=== PATIENT | female | born 1985 | race Two or more races ===

== ENCOUNTER 2024-05-04 18:14 | Emergency (ER) | payer OTHER, MEDICAID ==
[~2024-05-04] VITALS: Ht 165.1 cm; Wt 95.0 kg
[2024-05-04] MEDS ORDERED: MORPHINE SULFATE INJ 2 MG/ml SYRG IM ONE (19:30)
[2024-05-04] MEDS ORDERED: IBUP-1456 PO (19:31)
--- NOTE | 2024-05-04 19:31 | ED.PDOC ---
Musculoskeletal HPI Comments 39 year old female presents to ER for pain management of post operative pain to right knee. Patient states that she was discharged at noon today from [facility] after having a right knee replacement and presents to ER today for pain management of post operative pain to right knee. She reports she did take oxycodone as prescribed by her orthopedic surgeon without relief. She reports 10/10 pain to right knee without radiation and is requesting pain medication for her right knee post operative pain in ER today. States she is following up with her orthopedic surgeon in one week. Denies fever, body aches, chills, shortness of breath, chest pain, calf pain or any further symptoms/complaints Chief Complaint: Lower Extremity Time Seen by MD: 18:27 Primary Care Provider: UNKNOWN Reviewed Notes: Nurses Notes, Medications, Allergies Home Meds Active Scripts Ibuprofen (Ibuprofen) 800 Mg Tab, 1 TAB PO TID PRN, #30 TAB 0 Refills Prov:FAITH ROUSSEAU 05/04/24 Information Source: Patient Mode of Arrival: Ambulatory Past Medical History PAST MEDICAL HISTORY: Denies Surgical History (Other): Right knee replacement Family History Family History: Unknown Social History Smoker: Non-Smoker Alcohol: Denies ETOH Use Drugs: Denies Drug Use Lives In: Home Constitutional: denies: chills, diaphoresis, fatigue, fever, malaise, sweats, weakness, others EENTM: denies: blurred vision, double vision, ear bleeding, ear discharge, ear drainage, ear pain, ear ringing, eye pain, eye redness, hearing loss, mouth pain, mouth swelling, nasal discharge, nose bleeding, nose congestion, nose pain, photophobia, tearing, throat pain, throat swelling, voice changes, others Respiratory: denies: cough, hemoptysis, orthopnea, SOB at rest, shortness of breath, SOB with excertion, stridor, wheezing, others Cardiovascular: denies: chest pain, dizzy spells, diaphoresis, Dyspnea on exertion, edema, irregular heart beat, left arm pain, lightheadedness, palpitations, PND, syncope, others Gastrointestinal: denies: abdomen distended, abdominal pain, blood streaked bowels, constipated, diarrhea, dysphagia, difficulty swallowing, hematemesis, melena, nausea, poor appetite, poor fluid intake, rectal bleeding, rectal pain, vomiting, others Genitourinary: denies: abnormal vagina bleeding, burning, dyspareunia, dysuria, flank pain, frequency, hematuria, incontinence, pain, , vagina discharge, urgency, others Neurological: denies: dizziness, fainting, headache, left sided numbness, left sided weakness, numbness, paresthesia, pre-existing deficit, right sided numbness, right sided weakness, seizure, speech problems, tingling, tremors, weakness, others Musculoskeletal: reports: others (As stated in HPI) Integumetry: denies: bruises, change in color, change in hair/nails, dryness, laceration, lesions, lumps, rash, wounds, others Allergic/Immunocompromised: denies: Difficulty Healing, Frequent Infections, Hives, Itching, others Hematologic/Lymphatic: denies: anemia, blood clots, easy bleeding, easy bruising, swollen glands, others Endocrine: denies: excessive hunger, excessive sweating, excessive thirst, excessive urination, flushing, intolerance to cold, intolerance to heat, unexplained weight gain, unexplained weight loss, others Psychiatric: denies: anxiety, bipolar disorder, depression, hopeless, panic disorder, schizophrenia, sleepless, suicidal, others Physical Exam General Appearance: No Apparent Distress, Obese HEENT: PERRL/EOMI Neck: Full Range of Motion, Non-Tender, Normal Respiratory: Chest Non-Tender, Lungs Clear, No Accessory Muscle Use, No Respiratory Distress, Normal Breath Sounds Cardiovascular: No Murmur, No Gallop, Regular Rate/Rhythm Breast Exam: Deferred Gastrointestinal: NOT DONE Genitalia: Deferred Pelvic: Deferred Rectal: Deferred Extremities: No calf tenderness, Normal capillary refill, Normal range of motion Musculoskeletal : Extremity Location: Knee (Postoperative bandage noted to right knee. No erythema/bleeding/drainage appreciated. Pulses intact. Gait slowed with use of asstistance) Neurologic: Alert, No Motor Deficits, Normal Affect, Normal Mood, No Sensory Deficits Cerebellar Function: Normal Reflexes: Normal Skin: Dry, Normal Color, Warm Peripheral Pulses: 2+ femoral (R), 2+ femoral (L), 2+ dorsalis pedis (R), 2+ dorsalis pedis (L), 2+ Radial (R), 2+ Radial (L), 2+ Brachial (R), 2+ Brachial (L) Lymphatic: No Adenopathy Was a procedure done? Was a procedure done?: No Sedation Sedation?: No Differential Diagnosis EXT Differential Diagnosis: Fracture, Dislocation, Neurovascular injury X-Ray, Labs, Meds, VS Vital Signs Date Time Temp Pulse Resp B/P (MAP) Pulse Ox O2 Delivery O2 Flow Rate FiO2 05/04/24 20:14 79 19 114/60 (78) 100 05/04/24 20:14 79 19 114/60 05/04/24 19:27 99 Room Air 0 05/04/24 18:32 97.8 88 20 91/52 (65) 99 Current Medications Medications (Trade) Dose Ordered Sig/Mera Route Start Time Stop Time Status Last Admin Ondansetron HCl (Zofran Po) 4 mg ONCE ONCE PO 05/04/24 19:30 05/04/24 19:31 DC 05/04/24 20:07 Morphine Sulfate 2 mg ONCE ONCE IM 05/04/24 20:00 05/04/24 20:01 DC 05/04/24 20:14 Morphine 2 mg IM ordered Zofran 4 mg p.o. ordered Patient neurovascularly intact and reported improvement in symptoms prior to discharge Advised on rest/no strenuous activity, elevation and alternate ice on/off as needed for pain Advised to follow up with PCP and orthopedics in 1-2 days Patient verbalized understanding and agreeable with current plan of care Advised to return to ER immediately if symptoms worsen Time of 1ST Reevaluation: 19:02 Reevaluation 1ST: N/A Patient Education/Counseling: Diagnosis, Treatment, Prognosis, Need For Follow Up Family Education/Counseling: Diagnosis, Treatment, Prognosis, Need For Follow Up Departure 1 Departure Time of Disposition: 19:22 Impression: Primary Impression: Postoperative pain of right knee Disposition: 01 HOME / SELF CARE / HOMELESS Condition: Stable e-Prescriptions Ibuprofen (Ibuprofen) 800 Mg Tab 1 TAB PO TID PRN, #30 TAB 0 Refills Prov: FAITH ROUSSEAU 05/04/24 Discharged With: Significant Other Critical Care Note Critical Care Time?: No Stability Stability form required: No Heart Score Heart Score: Heart Score Response (Comments) Value History N/A 0 EKG N/A 0 Age N/A 0 Risk Factors N/A 0 Troponin N/A 0 Total 0 FAITH ROUSSEAU May 04, 2024 19:31
[2024-05-04] MEDS: ONDANSETRON ODT 4 MG TAB PO ONE (20:07)
[2024-05-04 20:14] VITALS: O2SAT 100
[2024-05-04] MEDS: MORPHINE SULFATE INJ 2 MG/ml SYRG IM ONE (20:14)
[2024-05-04 20:44] VITALS: BP 103/60; PULSE 76; RESP 18
== END 2024-05-04 21:18 | disposition home or self-care (01) ==
LOC: ER 18:14
DX: M25.561 Pain in right knee (principal); Z98.890 Other specified postprocedural states
CPT/HCPCS: 96372; 99283; J2270; Q0162